=== PATIENT | male | born 1940 | race Caucasian/White ===

== ENCOUNTER 2017-04-13 18:33 | Emergency (ER) | payer OTHER, BC ==
[~2017-04-13] VITALS: Ht 175.3 cm; Wt 70.3 kg
[~2017-04-13 18:33] MED LIST: ASPIR 8181 MG PO; ATORVASTATIN CA20 MG PO; CLARITIN10 MG PO; DICLOFENAC SODI75 MG PO; HYDROCODON-ACE1 EAC1 PO; HYDROCODON-ACE1 EAC8 PO; INDOMETHACIN 2525 MG PO; LUTEIN6 MG PO; MIRALAX255 GM; NORCO 5-325 TA1 EACH PO; NORTRIPTYLINE H50 M3 PO; OXYCODONE HCL 55 MG PO; PRILOSEC 20 MG20 MG PO; PROTONIX40 M1 PO; SPIRIVA; SYNALAR30 GM TP; TRIAMCINOLONE A80 G2 TOP; VENTOLIN HFA 1818 GM INH; ZOFRAN ODT4 MG PO; ZYRTEC10 M2 PO
[2017-04-13] MEDS ORDERED: CENTRUM SILVER1 EAC2 PO (20:17)
[2017-04-13] MEDS ORDERED: CARAFATE 1 GM TA1 G1 PO (20:18)
[2017-04-13] MEDS ORDERED: URSO TAB 250 M250 MG PO (20:19)
[2017-04-13] MEDS ORDERED: CLARITIN10 M2 PO (20:26)
[2017-04-13] MEDS ORDERED: MIRALAX17 GM PO (20:27)
== END 2017-04-13 19:20 | disposition home or self-care (01) ==
LOC: ER 18:33
DX: S51.811A Laceration without foreign body of right forearm, initial encounter (principal); I10 Essential (primary) hypertension; J44.9 Chronic obstructive pulmonary disease, unspecified; M19.90 Unspecified osteoarthritis, unspecified site; F10.99 Alcohol use, unspecified with unspecified alcohol-induced disorder; F12.10 Cannabis abuse, uncomplicated; Z87.891 Personal history of nicotine dependence; Z98.890 Other specified postprocedural states; W17.2XXA Fall into hole, initial encounter; Y93.89 Activity, other specified; Y92.89 Other specified places as the place of occurrence of the external cause; Y99.8 Other external cause status

== ENCOUNTER 2017-12-29 12:17 | Emergency (ER) | payer OTHER, BC ==
[~2017-12-29] VITALS: Ht 175.3 cm; Wt 77.1 kg
[~2017-12-29 12:17] MED LIST changes: +CARAFATE 1 GM TA1 G1 PO; +CENTRUM SILVER1 EAC2 PO; +CLARITIN10 M2 PO; +MIRALAX17 GM PO; +URSO TAB 250 M250 MG PO
[2017-12-29] MEDS ORDERED: CIPRODEX OTIC7.5 ML OTIC (12:59)
== END 2017-12-29 18:29 | disposition home or self-care (01) ==
LOC: ER 12:17
DX: T16.1XXA Foreign body in right ear, initial encounter (principal); J44.9 Chronic obstructive pulmonary disease, unspecified; I10 Essential (primary) hypertension; M19.90 Unspecified osteoarthritis, unspecified site; Z90.89 Acquired absence of other organs; Z87.891 Personal history of nicotine dependence; X58.XXXA Exposure to other specified factors, initial encounter

== ENCOUNTER → 2018-06-19 | Outpatient (CLI) | payer OTHER, BC ==
[~2018-06-19] MED LIST changes: +CIPRODEX OTIC7.5 ML OTIC
== END ==
LOC: MRI 07:23
DX: M19.012 Primary osteoarthritis, left shoulder (principal)

== ENCOUNTER 2018-07-08 15:16 | Emergency (ER) | payer OTHER, BC ==
[~2018-07-08] VITALS: Ht 175.3 cm; Wt 79.4 kg
[2018-07-08 16:59] VITALS: BP 162/87
[2018-07-09] MEDS ORDERED: URSODIOL250 MG PO (13:40)
[2018-07-09] MEDS ORDERED: SPIRIVA18 MCG INH (13:40)
[2018-07-09] MEDS ORDERED: PROTONIX40 M1 PO (13:41)
== END 2018-07-08 17:30 | disposition home or self-care (01) ==
LOC: ER 15:16
DX: S01.01XA Laceration without foreign body of scalp, initial encounter (principal); S61.412A Laceration without foreign body of left hand, initial encounter; F10.10 Alcohol abuse, uncomplicated; J44.9 Chronic obstructive pulmonary disease, unspecified; I10 Essential (primary) hypertension; M19.90 Unspecified osteoarthritis, unspecified site; Z90.89 Acquired absence of other organs; Z87.891 Personal history of nicotine dependence; Z98.890 Other specified postprocedural states; W00.0XXA Fall on same level due to ice and snow, initial encounter; Y92.89 Other specified places as the place of occurrence of the external cause; Y93.89 Activity, other specified; Y99.8 Other external cause status

== ENCOUNTER 2018-07-09 12:58 | Emergency (ER) | payer OTHER, BC ==
[~2018-07-09] VITALS: Ht 175.3 cm; Wt 77.1 kg
[2018-07-09] MEDS ORDERED: SPIRIVA18 MCG INH (13:40)
[2018-07-09] MEDS ORDERED: URSODIOL250 MG PO (13:40)
[2018-07-09] MEDS ORDERED: PROTONIX40 M1 PO (13:41)
[2018-07-09 13:44] LABS: HEMATOCRIT 45.4 % (42.0-52.0); HEMOGLOBIN 15.9 gm/dL (14.0-18.0); MCH 30.7 pg (26.0-34.0); MCV 87.7 fL (80.0-100.0); RBC 5.17 mil/uL (4.50-6.00); RDW 13.9 % (10.5-14.5)
[2018-07-09 13:52] LABS: ANION GAP 14 mmol/L (7-16); BUN 6 mg/dL (7-18); CALCIUM 9.7 mg/dL (8.5-10.1); CHLORIDE 91 mmol/L (98-107); CO2 25 mmol/L (21-32); CREATININE 0.9 mg/dL (0.7-1.3); GLUCOSE 137 mg/dL (74-106); POTASSIUM 3.4 mmol/L (3.5-5.1); SODIUM 130 mmol/L (136-145)
--- NOTE | 2018-07-09 14:00 | EKG ---
[address] [place] [address] ELECTROCARDIOGRAM REPORT Name: СВЕТЛАНА JO [id number] Admission: 07/09/18 Attend Phys: Discharge: Date of : 40 Report #: [id number] THIS REPORT FOR: //name// [facility] ED Test Date: 2018-07-09 Test Time: 13:41:26 Pat Name: СВЕТЛАНА JO Department: Room: Gender: Guest Services Associate: SHANNAN : 1940 Requested By: Kirt Crook Order Number: [id number] MD: Leroy Barnhart Measurements Intervals [place] Rate: 107 P: 82 CT: 163 QRS: -38 QRSD: 134 T: 121 QT: 389 QTc: 519 Interpretive Statements Sinus tachycardia Left bundle branch block Compared to ECG 03/29/2016 08:55:31 No significant changes Electronically Signed On 07-09-2018 14:00:29 TOBACCO SAMPLER by Leroy Barnhart [email or web address] <ELECTRONICALLY SIGNED> By: Leroy Barnhart MD 07/09/18 1400 134 1341 MD TODD Barragan
[2018-07-09 14:01] LABS: APTT 27.5 Seconds (24.5-32.8); PROTIME 10.2 Seconds (9.3-11.4); TROPONIN-I <0.06 ng/mL (<0.06)
[2018-07-09 14:15] VITALS: BP 186/83
== END 2018-07-09 14:19 | disposition short-term general hospital (02) ==
LOC: ER 12:58
PROVIDERS: Emergency Medicine
DX: I61.8 Other nontraumatic intracerebral hemorrhage (principal); J44.9 Chronic obstructive pulmonary disease, unspecified; I10 Essential (primary) hypertension; M19.90 Unspecified osteoarthritis, unspecified site; Z90.89 Acquired absence of other organs; Z87.891 Personal history of nicotine dependence; Z98.890 Other specified postprocedural states